=== PATIENT | male | born 1970 | race Caucasian/White ===

== ENCOUNTER 2016-12-31 05:16 | Inpatient (IN) | payer MEDICAID ==
[~2016-12-31] VITALS: Ht 170.2 cm; Wt 121.1 kg
[2016-12-31] MEDS ORDERED: NITROGLYCERIN OINT 2%, 1GM TP ONE ×2 (05:28→05:38)
[2016-12-31] MEDS ORDERED: ASPIRIN 81 MG TABLET CHEW PO ONE (05:30)
[2016-12-31] MEDS ORDERED: METOPROLOL 1 MG/ML, 5ML IVPush PRN (05:30)
[2016-12-31] MEDS ORDERED: MORPHINE SULFATE 4 MG/ML, 1ML IVPush PRN (05:30)
[2016-12-31] MEDS ORDERED: SODIUM CHLORIDE FLUSH 10ML SYR IVF ONE (05:30)
[2016-12-31] MEDS ORDERED: MORPHINE SULFATE 4 MG/ML, 1ML ONE (05:38)
[2016-12-31] MEDS ORDERED: METOPROLOL 1 MG/ML, 5ML ONE (05:38)
[2016-12-31] MEDS ORDERED: ASPIRIN 81 MG TABLET CHEW ONE (05:38)
[2016-12-31] MEDS ORDERED: PLEASE ENTER ALLERGIES MC SCH ×2 (06:00)
[2016-12-31 06:20] LABS: BLOOD UREA NITROGEN 12 mg/dL (7-18)
[2016-12-31 06:25] LABS: ASPARTATE AMINO TRANSFERASE 21 U/L (15-37)
[2016-12-31 06:26] LABS: IS PT STATUS REG ER OR PRE ER? YES
[2016-12-31 06:47] LABS: HEMATOCRIT 49.7 % (39.2-51.8); HEMOGLOBIN 17.1 g/dL (13.7-18.0); WHITE BLOOD COUNT 6.9 x10^3/uL (3.4-10)
[2016-12-31] MEDS ORDERED: OMNIPAQUE 350 MG/ML, 100ML BOTTLE ONE (07:03)
[2016-12-31] MEDS ORDERED: Enoxaparin 1 mg/kg protocol SQ SCH (08:00)
[2016-12-31] MEDS ORDERED: ONDANSETRON 2MG/ML, 2ML IVPush PRN (08:30)
[2016-12-31] MEDS ORDERED: DOCUSATE 100 MG CAPSULE PO PRN (09:00)
[2016-12-31] MEDS ORDERED: LABETALOL 5MG/ML, 20ML IVPush PRN (09:00)
[2016-12-31] MEDS ORDERED: POLYETHYLENE GLYCOL 17 GM PACKET PO PRN (09:00)
[2016-12-31] MEDS ORDERED: BISACODYL 10 MG SUPP PR PRN (09:00)
[2016-12-31 10:34] VITALS: BP 128/80
[2016-12-31] MEDS: ENOXAPARIN 120MG/0.8ML SQ SCH ×2 (11:28→23:15)
[2016-12-31] MEDS: morphine SULFATE 10 MG/ML, 1ML IVPush PRN ×2 (11:29→23:15)
[2016-12-31] MEDS: Enoxaparin 1 mg/kg protocol SQ SCH ×2 (11:31→21:00)
[2016-12-31] MEDS: WARFARIN HIGH DOSE PROTOCOL XX SCH (12:00)
[2016-12-31] MEDS: SODIUM CHLORIDE FLUSH 10ML SYR IVF SCH ×2 (13:15→23:15)
[2016-12-31] MEDS: ONDANSETRON 2MG/ML, 2ML IVPush PRN ×2 (13:15→23:15)
[2016-12-31] MEDS: ACETAMINOPHEN 325 MG TABLET PO PRN (13:24)
[2016-12-31 13:32] LABS: DAU SCREEN DISCLAIMER
[2016-12-31 13:41] LABS: IS PT STATUS REG ER OR PRE ER? NO
[2016-12-31 14:27] VITALS: BP 134/84
[2016-12-31] MEDS: LISINOPRIL 5 MG TABLET PO SCH (15:31)
[2016-12-31] MEDS: CARVEDILOL 3.125 MG TABLET PO SCH (17:24)
[2016-12-31] MEDS ORDERED: WARFARIN 10 MG TABLET PO-COUM ONE (18:00)
[2016-12-31 19:15] LABS: IS PT STATUS REG ER OR PRE ER? NO
[2016-12-31 21:26] VITALS: BP 137/83
[2017-01-01] VITALS (7 sets, daily range): BP systolic 93–141; BP diastolic 50–87
[2017-01-01] MEDS: ACETAMINOPHEN 325 MG TABLET PO PRN (03:56)
[2017-01-01 05:23] LABS: BLOOD UREA NITROGEN 12 mg/dL (7-18)
[2017-01-01 06:30] LABS: HEMATOCRIT 45.3 % (39.2-51.8); HEMOGLOBIN 15.1 g/dL (13.7-18.0); WHITE BLOOD COUNT 6.5 x10^3/uL (3.4-10)
[2017-01-01 06:31] LABS: ANISOCYTOSIS 1+; GIANT PLATELETS 1+; LARGE PLATELETS 1+
[2017-01-01] MEDS: CARVEDILOL 3.125 MG TABLET PO SCH ×2 (08:35→18:00)
[2017-01-01] MEDS: SODIUM CHLORIDE FLUSH 10ML SYR IVF SCH ×2 (08:35→21:35)
[2017-01-01] MEDS: LISINOPRIL 5 MG TABLET PO SCH (08:40)
[2017-01-01] MEDS: WARFARIN HIGH DOSE PROTOCOL XX SCH (12:00)
[2017-01-01] MEDS: ENOXAPARIN 120MG/0.8ML SQ SCH ×2 (12:17→22:33)
[2017-01-01] MEDS: HYDROcodone/APAP 5/325 TABLET PO PRN (12:21)
[2017-01-01] MEDS: ONDANSETRON 2MG/ML, 2ML IVPush PRN (14:27)
[2017-01-01] MEDS ORDERED: WARFARIN 10 MG TABLET PO-COUM SCH (18:00)
[2017-01-01] MEDS: morphine SULFATE 10 MG/ML, 1ML IVPush PRN (22:32)
[2017-01-02 03:13] VITALS: BP 115/70
[2017-01-02 04:47] LABS: HEMATOCRIT 44.8 % (39.2-51.8); WHITE BLOOD COUNT 5.8 x10^3/uL (3.4-10)
[2017-01-02 04:57] LABS: BLOOD UREA NITROGEN 12 mg/dL (7-18)
[2017-01-02 05:59] VITALS: BP 112/72
[2017-01-02] MEDS: CARVEDILOL 3.125 MG TABLET PO SCH ×2 (06:01→17:13)
[2017-01-02 09:01] VITALS: BP 136/81
[2017-01-02] MEDS: SODIUM CHLORIDE 0.9% 1,000 ML IV ONE (10:08)
[2017-01-02] MEDS: ENOXAPARIN 120MG/0.8ML SQ SCH ×2 (11:39→23:13)
[2017-01-02] MEDS: SODIUM CHLORIDE FLUSH 10ML SYR IVF SCH ×2 (11:39→20:51)
[2017-01-02 12:38] VITALS: BP 129/84
[2017-01-02] MEDS ORDERED: WARFARIN 10 MG TABLET PO-COUM SCH (18:00)
[2017-01-02] MEDS ORDERED: LABETALOL 5MG/ML, 20ML IVPush PRN (19:00)
[2017-01-02] MEDS ORDERED: BISACODYL 10 MG SUPP PR PRN (19:00)
[2017-01-02] MEDS ORDERED: POLYETHYLENE GLYCOL 17 GM PACKET PO PRN (19:00)
[2017-01-02] MEDS ORDERED: DOCUSATE 100 MG CAPSULE PO PRN (19:00)
[2017-01-02 19:50] VITALS: BP 154/81
[2017-01-02] MEDS: HYDROcodone/APAP 5/325 TABLET PO PRN (20:50)
[2017-01-02] MEDS ORDERED: ALBUTEROL SULFATE 2.5 MG/3 ML ONE (21:03)
[2017-01-02] MEDS ORDERED: ALBUTEROL SULFATE 2.5 MG/3 ML NPPB PRN (23:30)
[2017-01-03 01:28] VITALS: BP 143/76
[2017-01-03 05:09] LABS: HEMATOCRIT 44.6 % (39.2-51.8); HEMOGLOBIN 15.1 g/dL (13.7-18.0); WHITE BLOOD COUNT 5.1 x10^3/uL (3.4-10)
[2017-01-03 05:21] LABS: BLOOD UREA NITROGEN 11 mg/dL (7-18)
[2017-01-03 06:09] VITALS: BP 150/91
[2017-01-03] MEDS: CARVEDILOL 3.125 MG TABLET PO SCH ×2 (06:10→18:01)
[2017-01-03 08:28] VITALS: BP 143/90
[2017-01-03 09:16] VITALS: BP 145/98
[2017-01-03] MEDS: SODIUM CHLORIDE FLUSH 10ML SYR IVF SCH ×2 (09:25→21:33)
[2017-01-03] MEDS: morphine SULFATE 10 MG/ML, 1ML IVPush PRN (09:34)
[2017-01-03] MEDS: ONDANSETRON 2MG/ML, 2ML IVPush PRN (09:35)
[2017-01-03] MEDS ORDERED: HEPARIN 25,000 UNITS/500ML PMX 500 ML IV PRN (10:00)
[2017-01-03] MEDS ORDERED: POTASSIUM CHLORIDE 20 MEQ TAB.ER.PRT PO ONE (10:30)
[2017-01-03] MEDS ORDERED: HEPARIN 25,000 UNITS/500ML PMX 500 ML ONE (11:59)
[2017-01-03] MEDS ORDERED: HEPARIN 5,000 UNITS/ML, 1ML IV ONE (12:30)
[2017-01-03] MEDS: HEPARIN 25,000 UNITS/500ML PMX 500 ML IV PRN (12:41)
[2017-01-03 13:43] VITALS: BP 151/96
[2017-01-03] MEDS: HEPARIN 5,000 UNITS/ML, 1ML IV PRN (19:10)
[2017-01-03 19:45] VITALS: BP 146/99
[2017-01-04] MEDS: HYDROcodone/APAP 5/325 TABLET PO PRN (01:07)
[2017-01-04 01:09] VITALS: BP 151/90
[2017-01-04] MEDS: HEPARIN 5,000 UNITS/ML, 1ML IV PRN ×2 (01:18→08:11)
[2017-01-04 05:56] LABS: HEMATOCRIT 47.2 % (39.2-51.8); WHITE BLOOD COUNT 5.1 x10^3/uL (3.4-10)
[2017-01-04] MEDS: HEPARIN 25,000 UNITS/500ML PMX 500 ML IV PRN (06:09)
[2017-01-04] MEDS: CARVEDILOL 3.125 MG TABLET PO SCH (06:10)
[2017-01-04 06:18] LABS: BLOOD UREA NITROGEN 12 mg/dL (7-18)
[2017-01-04 08:00] VITALS: BP 150/104
[2017-01-04] MEDS: SODIUM CHLORIDE FLUSH 10ML SYR IVF SCH ×2 (08:11→21:19)
[2017-01-04] MEDS ORDERED: SODIUM CHLORIDE 0.9% 500 ML IV ONE ×2 (12:30)
[2017-01-04 13:56] VITALS: BP 143/107
[2017-01-04] MEDS ORDERED: LIDOCAINE 2%, 20ML ONE (16:00)
[2017-01-04] MEDS ORDERED: MIDAZOLAM 1 MG/ML, 5ML ONE (16:00)
[2017-01-04] MEDS ORDERED: FENTANYL PF 100 MCG/2ML ONE (16:00)
[2017-01-04] MEDS ORDERED: WARFARIN HIGH DOSE PROTOCOL XX PRN (18:00)
[2017-01-04] MEDS: CARVEDILOL 6.25 MG TABLET PO SCH (18:04)
[2017-01-04] MEDS ORDERED: WARFARIN 7.5 MG TABLET PO-COUM ONE (18:30)
[2017-01-04] MEDS ORDERED: SODIUM CHLORIDE 0.9% 1,000 ML IV SCH (18:30)
[2017-01-04 18:45] VITALS: BP 149/107
[2017-01-04] MEDS: morphine SULFATE 10 MG/ML, 1ML IVPush PRN ×2 (19:13→21:18)
[2017-01-04] MEDS: ONDANSETRON 2MG/ML, 2ML IVPush PRN (21:18)
[2017-01-05] MEDS: HYDROcodone/APAP 5/325 TABLET PO PRN ×2 (00:59→08:06)
[2017-01-05 01:30] VITALS: BP 157/100
[2017-01-05 04:50] LABS: BLOOD UREA NITROGEN 14 mg/dL (7-18)
[2017-01-05 05:14] LABS: HEMATOCRIT 46.1 % (39.2-51.8); HEMOGLOBIN 15.8 g/dL (13.7-18.0); WHITE BLOOD COUNT 6.2 x10^3/uL (3.4-10)
[2017-01-05] MEDS: CARVEDILOL 6.25 MG TABLET PO SCH ×2 (06:41→18:04)
[2017-01-05] MEDS ORDERED: NITROGLYCERIN 0.4 MG BOTTLE (25 TABS) SL ONE (07:26)
[2017-01-05 07:40] VITALS: BP 131/94
[2017-01-05] MEDS ORDERED: HEPARIN 5,000 UNITS/ML, 1ML IV PRN (08:00)
[2017-01-05] MEDS ORDERED: HEPARIN 5,000 UNITS/ML, 1ML IV ONE (08:00)
[2017-01-05] MEDS: SODIUM CHLORIDE FLUSH 10ML SYR IVF SCH ×2 (08:06→21:14)
[2017-01-05] MEDS: LISINOPRIL 10 MG TABLET PO SCH (08:06)
[2017-01-05] MEDS: HEPARIN 25,000 UNITS/500ML PMX 500 ML IV PRN ×2 (08:09→22:06)
[2017-01-05 15:26] VITALS: BP 135/84
[2017-01-05] MEDS ORDERED: WARFARIN 10 MG TABLET PO-COUM ONE (18:00)
[2017-01-05 18:40] VITALS: BP 133/82
[2017-01-05] MEDS: ONDANSETRON 2MG/ML, 2ML IVPush PRN (21:10)
[2017-01-05] MEDS: morphine SULFATE 10 MG/ML, 1ML IVPush PRN (21:11)
[2017-01-06 01:52] VITALS: BP 133/87
[2017-01-06 03:44] LABS: HEMATOCRIT 45.4 % (39.2-51.8); HEMOGLOBIN 15.3 g/dL (13.7-18.0); WHITE BLOOD COUNT 5.8 x10^3/uL (3.4-10)
[2017-01-06 03:53] LABS: BLOOD UREA NITROGEN 16 mg/dL (7-18)
[2017-01-06] MEDS: CARVEDILOL 6.25 MG TABLET PO SCH ×2 (06:07→16:51)
[2017-01-06] MEDS: SODIUM CHLORIDE FLUSH 10ML SYR IVF SCH (08:18)
[2017-01-06] MEDS: LISINOPRIL 10 MG TABLET PO SCH (08:18)
[2017-01-06 09:19] VITALS: BP 119/69
[2017-01-06] MEDS: HEPARIN 25,000 UNITS/500ML PMX 500 ML IV PRN (11:16)
[2017-01-06] MEDS ORDERED: SODIUM CHLORIDE 0.9%, 500ML IVBOLUS ONE (14:30)
[2017-01-06 14:46] VITALS: BP 131/76
[2017-01-06] MEDS ORDERED: WARFARIN 7.5 MG TABLET PO-COUM SCH (18:00)
[2017-01-06 20:28] VITALS: BP 128/78
[2017-01-07] MEDS: HEPARIN 25,000 UNITS/500ML PMX 500 ML IV PRN (00:09)
[2017-01-07 02:20] VITALS: BP 130/85
[2017-01-07 05:12] LABS: ANTI-Xa-UNFRACTIONATED HEP 0.3 IU/mL (0.30-0.70)
[2017-01-07 05:13] LABS: BLOOD UREA NITROGEN 14 mg/dL (7-18)
[2017-01-07] MEDS: CARVEDILOL 6.25 MG TABLET PO SCH (06:00)
[2017-01-07] MEDS: SODIUM CHLORIDE FLUSH 10ML SYR IVF SCH ×2 (06:00→07:58)
[2017-01-07 07:45] VITALS: BP 143/91
[2017-01-07] MEDS: LISINOPRIL 10 MG TABLET PO SCH (07:58)
[2017-01-07] MEDS ORDERED: CARV6.2512 PO (11:22)
[2017-01-07] MEDS ORDERED: LISI-167 PO ×2 (11:22→14:51)
[2017-01-07] MEDS ORDERED: WARF5TAB PO (11:22)
[2017-01-07 13:08] VITALS: BP 162/110
[2017-01-07 13:13] VITALS: BP 180/118
[2017-01-07] MEDS ORDERED: LISINOPRIL 10 MG TABLET PO ONE (13:30)
[2017-01-07 14:40] VITALS: BP 126/76
== END 2017-01-07 16:55 | disposition home or self-care (01) | DRG 286 ==
LOC: ED 07:11 → EDIP 07:58 → 5SO 10:30 → DCLOUNGE 01-07 16:40
PROVIDERS: ADMIT Hospitalist; ATTEND Hospitalist
PROC: 4A023N8 Measurement of Cardiac Sampling and Pressure, Bilateral, Percutaneous Approach (ICD-10-PCS; principal; 2017-01-04)
PROC: B2111ZZ Fluoroscopy of Multiple Coronary Arteries using Low Osmolar Contrast (ICD-10-PCS; 2017-01-04)
PROC: B2151ZZ Fluoroscopy of Left Heart using Low Osmolar Contrast (ICD-10-PCS; 2017-01-04)
DX: I82.411 Acute embolism and thrombosis of right femoral vein (principal); I26.99 Other pulmonary embolism without acute cor pulmonale; N17.0 Acute kidney failure with tubular necrosis; C78.7 Secondary malignant neoplasm of liver and intrahepatic bile duct; D68.69 Other thrombophilia; I11.0 Hypertensive heart disease with heart failure; I50.30 Unspecified diastolic (congestive) heart failure; I27.2 Other secondary pulmonary hypertension; J98.11 Atelectasis; I82.431 Acute embolism and thrombosis of right popliteal vein; I07.1 Rheumatic tricuspid insufficiency; E66.9 Obesity, unspecified; F17.200 Nicotine dependence, unspecified, uncomplicated; F41.9 Anxiety disorder, unspecified; I25.10 Atherosclerotic heart disease of native coronary artery without angina pectoris; I86.1 Scrotal varices; J44.9 Chronic obstructive pulmonary disease, unspecified; N43.41 Spermatocele of epididymis, single; N44.2 Benign cyst of testis; Z59.0 Homelessness; I25.2 Old myocardial infarction; Z79.82 Long term (current) use of aspirin; Z79.899 Other long term (current) drug therapy; Z83.3 Family history of diabetes mellitus; Z86.711 Personal history of pulmonary embolism; Z91.14 Patient's other noncompliance with medication regimen; Z91.19 Patient's noncompliance with other medical treatment and regimen; R73.9 Hyperglycemia, unspecified
CPT/HCPCS: 36415; 71010; 71275; 76870; 78582; 80048; 80053; 80061; 80307; 83605; 84443; 84484; 85025; 85379; 85520; 85610; 93005; 93306; 93460; 93970; 93975; 96374; 96375; 99156; 99157; C1894; J1644; J1650; J2250; J2405; J3010; J3490; Q9967; A9540; A9558; C9898; G0479; J2270; J7030; J7040

== ENCOUNTER 2017-02-08 11:00 | Emergency (ER) | payer MEDICAID ==
[~2017-02-08] VITALS: Ht 182.9 cm; Wt 124.0 kg
[~2017-02-08 11:00] MED LIST: CARV6.2512 PO; LISI-167 PO; WARF5TAB PO
[2017-02-08] MEDS ORDERED: ALBUTEROL/IPRATROPIUM 2.5MG/0.5MG, 3 ML NPPB ONE (11:30)
[2017-02-08] MEDS ORDERED: PLEASE ENTER HEIGHT AND WEIGHT MC SCH (11:30)
[2017-02-08] MEDS ORDERED: SODIUM CHLORIDE FLUSH 10ML SYR IVF ONE (11:30)
[2017-02-08] MEDS ORDERED: ALBUTEROL/IPRATROPIUM 2.5MG/0.5MG, 3 ML ONE (11:33)
[2017-02-08 12:03] LABS: HEMATOCRIT 45.5 % (39.2-51.8); HEMOGLOBIN 15.9 g/dL (13.7-18.0)
[2017-02-08 12:12] LABS: BLOOD UREA NITROGEN 15 mg/dL (7-18)
[2017-02-08 12:19] LABS: ASPARTATE AMINO TRANSFERASE 23 U/L (15-37)
[2017-02-08 12:20] LABS: IS PT STATUS REG ER OR PRE ER? YES
[2017-02-08] MEDS ORDERED: ONDANSETRON 2MG/ML, 2ML IVPush ONE (13:00)
[2017-02-08] MEDS ORDERED: MORPHINE SULFATE 4 MG/ML, 1ML IVPush ONE (13:00)
[2017-02-08] MEDS ORDERED: WARFARIN 5 MG TABLET PO-COUM ONE (13:00)
[2017-02-08 14:04] VITALS: BP 136/99
== END 2017-02-08 14:24 | disposition home or self-care (01) ==
LOC: ED 12:10
DX: R07.89 Other chest pain (principal); Z90.49 Acquired absence of other specified parts of digestive tract; I10 Essential (primary) hypertension; Z86.718 Personal history of other venous thrombosis and embolism; Z79.01 Long term (current) use of anticoagulants
CPT/HCPCS: 36415; 70450; 71010; 80053; 83880; 84484; 85025; 85610; 85730; 93005; 94640; 99285; J7620

== ENCOUNTER 2017-03-30 05:36 | Emergency (ER) | payer MEDICAID ==
[~2017-03-30] VITALS: Ht 182.9 cm; Wt 127.3 kg
[2017-03-30] MEDS ORDERED: ASPIRIN 81 MG TABLET CHEW ONE (06:51)
[2017-03-30] MEDS ORDERED: ASPIRIN 81 MG TABLET CHEW PO ONE (07:00)
[2017-03-30 07:12] LABS: HEMOGLOBIN 16.1 g/dL (13.7-18.0); WHITE BLOOD COUNT 7.3 x10^3/uL (3.4-10)
[2017-03-30 07:24] LABS: BLOOD UREA NITROGEN 12 mg/dL (7-18)
[2017-03-30 07:30] LABS: ASPARTATE AMINO TRANSFERASE 20 U/L (15-37)
[2017-03-30 07:32] LABS: IS PT STATUS REG ER OR PRE ER? YES
[2017-03-30] MEDS ORDERED: OMNIPAQUE 350 MG/ML, 150 ML BOTTLE ONE (09:08)
[2017-03-30 10:41] VITALS: BP 127/78
== END 2017-03-30 13:14 | disposition home or self-care (01) ==
LOC: ED 06:08
DX: R07.9 Chest pain, unspecified (principal); F17.210 Nicotine dependence, cigarettes, uncomplicated; I25.10 Atherosclerotic heart disease of native coronary artery without angina pectoris; Z86.711 Personal history of pulmonary embolism; Z86.718 Personal history of other venous thrombosis and embolism
CPT/HCPCS: 36415; 71010; 71275; 80053; 84484; 85025; 85379; 85610; 85730; 93005; 99285; Q9967

== ENCOUNTER 2018-07-28 12:16 | Inpatient (IN) | payer MEDICAID ==
[~2018-07-28] VITALS: Ht 182.9 cm; Wt 123.9 kg
[~2018-07-28 12:16] MED LIST changes: +AMLO-150 PO; +APIX2.5T PO; +APIX5TAB PO; +ATOR40TA78 PO; +METO200T47 PO; +METO25TA35 PO; +METO50TA6 PO; +NITR0.4T28 SL
--- NOTE | 2018-07-28 12:39 | NUR ---
47 YR OLD MALE ARRIVED VIA EMS WITH C/O "WOKE UP WITH LEFT SIDE CP AND DIFFICULTY BREATHING" PT REPORTS BEING IN [place] APPROX A WEEK, HAS BEEN OFF MOST OF HIS MEDICATIONS. "I LEFT THEM IN [place]" PT HAS BEEN TAKING 325 ASPIRIN AND COREG (LAST TIME 2 DAYS AGO) PT REPORTS INCREASING SOB OVER THIS WEEK, TO THE POINT OF "GASPING FOR AIR" WITH EXERTION AND WITHOUT EXERTION. PT REPORTS SMOKING METH YESTERDAY. PT PLACED ON MONITORS, SR PER MONTOR, AUTO BP, PULSE OX MONITOR.
--- NOTE | 2018-07-28 12:48 | NUR ---
PT UPDATED ON POC. UNDERSTANDING VERBALIZED. NO NEEDS EXPRESSED AT THIS TIME.
[2018-07-28 12:54] LABS: BASOPHILS # (AUTO) 0.03 x10^3/uL (0-0.1); BASOPHILS % (AUTO) 1 % (0-1); EOSINOPHILS # (AUTO) 0.26 x10^3/uL (0-0.4); EOSINOPHILS % (AUTO) 5 % (1-7); LYMPHOCYTES # (AUTO) 1.33 x10^3/uL (1-3.4); LYMPHOCYTES % (AUTO) 24 % (22-44); MD NO; MEAN CORPUSCULAR HGB CONC 34.4 g/dL (33.2-36.2); MEAN CORPUSCULAR VOLUME 84.3 fL (81-97); MONOCYTES # (AUTO) 0.54 x10^3/uL (0.2-0.8); MONOCYTES % (AUTO) 10 % (2-9); NEUTROPHILS # (AUTO) 3.38 x10^3/uL (1.8-6.8); NEUTROPHILS % (AUTO) 61 % (42-75); PLATELET COUNT 157 x10^3/uL (130-400); RED BLOOD COUNT 5.36 x10^6/uL (4.38-5.82)
[2018-07-28 13:04] LABS: ALBUMIN 4.2 g/dL (3.4-5.0); ANION GAP 7 mmol/L (5-15); CALCIUM 8.7 mg/dL (8.5-10.1); CHLORIDE 110 mmol/L (98-107); CREATININE 1.68 mg/dL (0.7-1.3)
[2018-07-28 13:05] LABS: INTERNATIONAL NORMALIZED RATIO 1.15 (0.93-1.1)
[2018-07-28 13:10] LABS: TROPONIN I 0.193 ng/mL (0.000-0.045)
--- NOTE | 2018-07-28 13:14 | NUR ---
PT TO CT VIA [facility]
[2018-07-28] MEDS ORDERED: ASPI-496 PO (13:15)
[2018-07-28] MEDS ORDERED: OMNIPAQUE 350 MG/ML, 150 ML BOTTLE ONE (13:27)
--- NOTE | 2018-07-28 13:29 | NUR ---
PT RETURN TO ROOM "I THOUGHT I WAS GOING TO GET SICK" STATES FEELING HAS PASSED, SR PER MONITOR. CONT TO MONITOR. WAITING FOR TEST RESULTS.
[2018-07-28] MEDS ORDERED: APIXABAN 5 MG TABLET PO ONE (14:00)
--- NOTE | 2018-07-28 14:51 | NUR ---
PARVEZ REQUESTED FROM PHARMACY.
[2018-07-28] MEDS ORDERED: ONDANSETRON 2MG/ML, 2ML ONE (14:55)
[2018-07-28] MEDS ORDERED: ONDANSETRON 2MG/ML, 2ML IVPush ONE (15:00)
--- NOTE | 2018-07-28 15:00 | NUR ---
PT WITH C/O "NAUSEA AND FEELING A LITTLE DIZZY" PT MEDICATED ORDERED. SR PER MONITOR. PT UPDATED ON POC, ER MD HAS CALL IN TO [facility]. ER MD AWARE OF PT BP. NO OTHER ORDERS. NO NEEDS EXPRESSED BY PT AT THIS TIME.
--- NOTE | 2018-07-28 15:08 | NUR ---
PT DOZING INTERMITTENTLY, AROUSES TO NAME. PT WITH RA SATS DECREASED TO 86%, PLACED ON 2L NC WITH SAT INC TO 91%.
--- NOTE | 2018-07-28 15:31 | NUR ---
ECHO IN PROCESS.
--- NOTE | 2018-07-28 16:39 | NUR ---
PT DOZING INTERMITTENTLY, AROUSES EASILY, SR PER MONITOR. PT STATES "FEELS BETTER WITH OXYGEN VIA NC IN PLACE. HOSPITALIST AT BEDSIDE TO EVAL PT.
[2018-07-28] MEDS ORDERED: ACETAMINOPHEN 325 MG TABLET PO PRN (17:30)
--- NOTE | 2018-07-28 17:41 | NUR ---
REPORT CALLED TO DOMINIQUE HERNANDEZ POC DISCUSSED.
[2018-07-28 18:36] VITALS: BP 154/90
[2018-07-28] MEDS: METOPROLOL TARTRATE 25 MG TABLET PO SCH (18:46)
[2018-07-28 19:33] VITALS: BP 159/92
[2018-07-28] MEDS: LISINOPRIL 10 MG TABLET PO SCH (20:49)
[2018-07-28] MEDS: APIXABAN 5 MG TABLET PO SCH (20:49)
[2018-07-28] MEDS ORDERED: ATORVASTATIN 40 MG TABLET PO SCH (21:00)
[2018-07-29 00:23] VITALS: BP 140/81
[2018-07-29] MEDS: METOPROLOL TARTRATE 25 MG TABLET PO SCH (05:20)
[2018-07-29 05:46] LABS: TROPONIN I 0.177 ng/mL (0.000-0.045)
[2018-07-29 06:40] VITALS: BP 143/88
[2018-07-29 07:49] LABS: AMPHETAMINE SCREEN, URINE Positive (Negative); BARBITURATE SCREEN, URINE Negative (Negative); BENZODIAZEPINE SCREEN, URINE Negative (Negative); CANNABINOID SCREEN, URINE Negative (Negative); COCAINE SCREEN, URINE Negative (Negative); METHADONE SCREEN, URINE Negative (Negative); OPIATE SCREEN, URINE Negative (Negative)
[2018-07-29] MEDS ORDERED: AMLODIPINE 5 MG TABLET PO SCH (09:00)
[2018-07-29] MEDS ORDERED: ASPIRIN 325 MG TABLET EC PO SCH (09:00)
[2018-07-29] MEDS: APIXABAN 5 MG TABLET PO SCH (10:04)
[2018-07-29] MEDS: LISINOPRIL 10 MG TABLET PO SCH (10:05)
[2018-07-29 12:58] VITALS: BP 166/86
[2018-07-29 14:15] VITALS: BP 128/74
[2018-07-29] MEDS ORDERED: APIX5TAB PO ×2 (15:46)
== END 2018-07-29 17:03 | disposition home or self-care (01) | DRG 546 ==
LOC: ED 13:39 → EDIP 15:14 → 5SO 17:57 → DCLOUNGE 07-29 16:48
PROVIDERS: ADMIT Hospitalist; ATTEND Hospitalist
DX: M32.11 Endocarditis in systemic lupus erythematosus (principal); I82.401 Acute embolism and thrombosis of unspecified deep veins of right lower extremity; D68.59 Other primary thrombophilia; I82.403 Acute embolism and thrombosis of unspecified deep veins of lower extremity, bilateral; Z88.8 Allergy status to other drugs, medicaments and biological substances; F15.10 Other stimulant abuse, uncomplicated; F17.200 Nicotine dependence, unspecified, uncomplicated; I07.1 Rheumatic tricuspid insufficiency; I12.9 Hypertensive chronic kidney disease with stage 1 through stage 4 chronic kidney disease, or unspecified chronic kidney disease; I25.10 Atherosclerotic heart disease of native coronary artery without angina pectoris; J44.9 Chronic obstructive pulmonary disease, unspecified; N18.3 Chronic kidney disease, stage 3 (moderate); Z63.8 Other specified problems related to primary support group; Z79.01 Long term (current) use of anticoagulants; Z80.0 Family history of malignant neoplasm of digestive organs; Z83.3 Family history of diabetes mellitus; Z86.711 Personal history of pulmonary embolism; Z91.19 Patient's noncompliance with other medical treatment and regimen; Z90.49 Acquired absence of other specified parts of digestive tract
CPT/HCPCS: 36415; 71275; 80048; 80307; 82040; 83880; 84484; 85025; 85610; 85730; 93005; 93306; 96374; G0378; J2405; Q9967

== ENCOUNTER 2018-08-23 13:24 | Emergency (ER) | payer MEDICAID ==
[~2018-08-23] VITALS: Ht 182.9 cm; Wt 125.1 kg
[~2018-08-23 13:24] MED LIST changes: +ASPI-496 PO
--- NOTE | 2018-08-23 14:18 | NUR ---
pt to ed room 18 at this time
[2018-08-23 14:49] LABS: BASOPHILS # (AUTO) 0.04 x10^3/uL (0-0.1); BASOPHILS % (AUTO) 1 % (0-1); EOSINOPHILS # (AUTO) 0.25 x10^3/uL (0-0.4); EOSINOPHILS % (AUTO) 4 % (1-7); LYMPHOCYTES # (AUTO) 1.78 x10^3/uL (1-3.4); LYMPHOCYTES % (AUTO) 30 % (22-44); MD NO; MEAN CORPUSCULAR HEMOGLOBIN 28.2 pg (27.5-34.5); MEAN CORPUSCULAR HGB CONC 33.7 g/dL (33.2-36.2); MEAN CORPUSCULAR VOLUME 83.7 fL (81-97); MEAN PLATELET VOLUME 8.8 fL (7.4-10.4); MONOCYTES # (AUTO) 0.54 x10^3/uL (0.2-0.8); MONOCYTES % (AUTO) 9 % (2-9); NEUTROPHILS # (AUTO) 3.42 x10^3/uL (1.8-6.8); NEUTROPHILS % (AUTO) 57 % (42-75); PLATELET COUNT 128 x10^3/uL (130-400); RED BLOOD COUNT 5.41 x10^6/uL (4.38-5.82); RED CELL DISTRIBUTION WIDTH 14.9 % (9.4-14.8)
[2018-08-23 14:53] LABS: INTERNATIONAL NORMALIZED RATIO 1.06 (0.93-1.1); PROTHROMBIN TIME 11.1 Seconds (9.6-11.5)
[2018-08-23] MEDS ORDERED: CARV12.543 PO (14:53)
[2018-08-23 14:57] LABS: ANION GAP 6 mmol/L (5-15); CALCIUM 8.4 mg/dL (8.5-10.1); CHLORIDE 113 mmol/L (98-107)
[2018-08-23 14:58] LABS: CREATININE 1.68 mg/dL (0.7-1.3)
[2018-08-23] MEDS ORDERED: SODIUM CHLORIDE FLUSH 10ML SYR IVF ONE (15:00)
--- NOTE | 2018-08-23 15:54 | NUR ---
UNABLE TO ESTABLISH IV ACCESS, TO REQUEST US IV ACCESS
[2018-08-23 16:15] VITALS: BP 189/91
--- NOTE | 2018-08-23 16:21 | NUR ---
pt to ct
[2018-08-23] MEDS ORDERED: OMNIPAQUE 350 MG/ML, 150 ML BOTTLE ONE (16:35)
== END 2018-08-23 17:31 | disposition home or self-care (01) ==
LOC: ED 17:25
DX: I82.541 Chronic embolism and thrombosis of right tibial vein (principal); J18.9 Pneumonia, unspecified organism; I25.10 Atherosclerotic heart disease of native coronary artery without angina pectoris; I10 Essential (primary) hypertension; Z90.49 Acquired absence of other specified parts of digestive tract; F17.200 Nicotine dependence, unspecified, uncomplicated
CPT/HCPCS: 36415; 71046; 71275; 80048; 82040; 85025; 85610; 93005; 99284; Q9967

== ENCOUNTER 2018-08-27 12:17 | Inpatient (IN) | payer MEDICAID ==
[~2018-08-27] VITALS: Ht 182.9 cm; Wt 120.0 kg
[~2018-08-27 12:17] MED LIST changes: +CARV12.543 PO
--- NOTE | 2018-08-27 12:28 | NUR ---
ORIENTED TO ROOM FOR SAFETY. CONNECTED TO MONITOR. AT BS.
[2018-08-27] MEDS ORDERED: ONDANSETRON ODT 4 MG PO ONE (12:30)
[2018-08-27] MEDS ORDERED: MECLIZINE CHEWABLE 25 MG TAB PO ONE (12:30)
[2018-08-27] MEDS ORDERED: MECLIZINE CHEWABLE 25 MG TAB ONE (12:41)
[2018-08-27] MEDS ORDERED: ONDANSETRON ODT 4 MG ONE (12:42)
[2018-08-27 12:51] LABS: BASOPHILS # (AUTO) 0.04 x10^3/uL (0-0.1); BASOPHILS % (AUTO) 1 % (0-1); EOSINOPHILS # (AUTO) 0.23 x10^3/uL (0-0.4); EOSINOPHILS % (AUTO) 4 % (1-7); LYMPHOCYTES # (AUTO) 1.34 x10^3/uL (1-3.4); LYMPHOCYTES % (AUTO) 21 % (22-44); MD NO; MEAN CORPUSCULAR HGB CONC 34.4 g/dL (33.2-36.2); MEAN CORPUSCULAR VOLUME 84.2 fL (81-97); MEAN PLATELET VOLUME 8.7 fL (7.4-10.4); MONOCYTES % (AUTO) 8 % (2-9); NEUTROPHILS # (AUTO) 4.23 x10^3/uL (1.8-6.8); NEUTROPHILS % (AUTO) 67 % (42-75); PLATELET COUNT 149 x10^3/uL (130-400); RED BLOOD COUNT 5.67 x10^6/uL (4.38-5.82); RED CELL DISTRIBUTION WIDTH 14.7 % (9.4-14.8)
[2018-08-27 13:00] LABS: ALANINE AMINOTRANSFERASE 41 U/L (12-78); ANION GAP 8 mmol/L (5-15); CALCIUM 8.7 mg/dL (8.5-10.1); CHLORIDE 111 mmol/L (98-107); CREATININE 1.62 mg/dL (0.7-1.3)
--- NOTE | 2018-08-27 13:03 | NUR ---
BS REPORT TO
[2018-08-27 13:04] LABS: ALKALINE PHOSPHATASE 63 U/L (45-117); TOTAL PROTEIN 7.9 g/dL (6.4-8.2)
--- NOTE | 2018-08-27 13:08 | NUR ---
RECEIVED REPORT FROM LUCIA HERNANDEZ
--- NOTE | 2018-08-27 13:11 | NUR ---
CRITICAL LAB VALUE TROP 0.170- MD AWARE.
[2018-08-27] MEDS ORDERED: SODIUM CHLORIDE 0.9% 1,000ML IVBOLUS ONE (13:30)
[2018-08-27] MEDS ORDERED: ASPIRIN 81 MG TABLET CHEW PO ONE (13:30)
[2018-08-27] MEDS ORDERED: ASPIRIN 81 MG TABLET CHEW ONE (13:33)
--- NOTE | 2018-08-27 14:12 | NUR ---
PATIENT BACK FROM CTA OF CHEST AND IV RIGHT UPPER FOREARM INFILTRATED. IV DISCONTINUED AND WARM COMPRESS PLACED ON PATIENT.
--- NOTE | 2018-08-27 14:29 | NUR ---
NEW IV STARTED LEFT WRIST
[2018-08-27] MEDS ORDERED: PIPERACILLIN/TAZO/PMX 3.375GM 50 ML IVPB ONE (14:30)
--- NOTE | 2018-08-27 15:08 | NUR ---
WARM COMPRESS PLACED ON RIGHT FOREARM IV INFILTRATION. AWARE OF IV INFILTRATION.
--- NOTE | 2018-08-27 15:09 | NUR ---
BLOOD CULTURES DRAWN X 2 AND ANTIBIOTICS HUNG PER MD ORDER
--- NOTE | 2018-08-27 15:26 | NUR ---
REPORT GIVEN TO SAYRA HERNANDEZ
[2018-08-27] MEDS ORDERED: PIPERACILLIN/TAZO/PMX 3.375GM 50 ML ONE (15:31)
--- NOTE | 2018-08-27 15:40 | NUR ---
HOSPITALIST AT BEDSIDE.
[2018-08-27 15:58] VITALS: BP_SYST 149; BP_SYST 151; BP_SYST 152; BP_DIAS 86; BP_DIAS 89; BP_DIAS 90
[2018-08-27] MEDS ORDERED: CEFTRIAXONE PMX 2GM/50ML 50 ML IV SCH (16:00)
[2018-08-27] MEDS ORDERED: ACETAMINOPHEN 325 MG TABLET PO PRN (16:00)
[2018-08-27] MEDS ORDERED: AZITHROMYCIN 500 MG in SODIUM CHLORIDE 0.9% 250 ML IV SCH (16:00)
[2018-08-27] MEDS ORDERED: ONDANSETRON 2MG/ML, 2ML IVPush PRN (16:00)
[2018-08-27] MEDS ORDERED: hydrALAzine 20 MG/ML, 1ML IVPush PRN (16:00)
[2018-08-27] MEDS ORDERED: NITROGLYCERIN 0.4 MG BOTTLE (25 TABS) SL PRN (16:00)
[2018-08-27] MEDS ORDERED: NICOTINE 14MG/24 HR PATCH.TD24 TD SCH (17:30)
[2018-08-27] MEDS: METOPROLOL TARTRATE 25 MG TABLET PO SCH (18:23)
[2018-08-27 20:09] VITALS: BP 147/70
[2018-08-27 20:12] LABS: AMPHETAMINE SCREEN, URINE Positive (Negative); BARBITURATE SCREEN, URINE Negative (Negative); BENZODIAZEPINE SCREEN, URINE Negative (Negative); CANNABINOID SCREEN, URINE Negative (Negative); COCAINE SCREEN, URINE Negative (Negative); METHADONE SCREEN, URINE Negative (Negative); OPIATE SCREEN, URINE Negative (Negative)
[2018-08-27] MEDS ORDERED: ATORVASTATIN 40 MG TABLET PO SCH (21:00)
[2018-08-27] MEDS: LISINOPRIL 10 MG TABLET PO SCH (21:40)
[2018-08-27] MEDS: CARVEDILOL 12.5 MG TABLET PO SCH (21:40)
[2018-08-27] MEDS: APIXABAN 5 MG TABLET PO SCH (21:40)
[2018-08-28 01:41] VITALS: BP 118/65
[2018-08-28 04:59] VITALS: BP 120/76
[2018-08-28] MEDS: METOPROLOL TARTRATE 25 MG TABLET PO SCH (05:02)
[2018-08-28 05:40] LABS: BASOPHILS # (AUTO) 0.03 x10^3/uL (0-0.1); BASOPHILS % (AUTO) 1 % (0-1); EOSINOPHILS # (AUTO) 0.25 x10^3/uL (0-0.4); EOSINOPHILS % (AUTO) 4 % (1-7); LYMPHOCYTES # (AUTO) 1.51 x10^3/uL (1-3.4); LYMPHOCYTES % (AUTO) 23 % (22-44); MD NO; MEAN CORPUSCULAR HEMOGLOBIN 29.4 pg (27.5-34.5); MEAN CORPUSCULAR HGB CONC 34.8 g/dL (33.2-36.2); MEAN CORPUSCULAR VOLUME 84.4 fL (81-97); MONOCYTES # (AUTO) 0.58 x10^3/uL (0.2-0.8); MONOCYTES % (AUTO) 9 % (2-9); NEUTROPHILS # (AUTO) 4.06 x10^3/uL (1.8-6.8); NEUTROPHILS % (AUTO) 63 % (42-75); PLATELET COUNT 156 x10^3/uL (130-400); RED BLOOD COUNT 5.04 x10^6/uL (4.38-5.82); RED CELL DISTRIBUTION WIDTH 14.8 % (9.4-14.8)
[2018-08-28 05:48] LABS: ALBUMIN 3.5 g/dL (3.4-5.0); ANION GAP 6 mmol/L (5-15); CALCIUM 8.5 mg/dL (8.5-10.1); CHLORIDE 108 mmol/L (98-107)
[2018-08-28 05:52] LABS: ALANINE AMINOTRANSFERASE 33 U/L (12-78); ALKALINE PHOSPHATASE 54 U/L (45-117); BILIRUBIN,TOTAL 0.6 mg/dL (0.2-1.0); CREATININE 1.68 mg/dL (0.7-1.3); TOTAL PROTEIN 7.2 g/dL (6.4-8.2)
[2018-08-28 08:08] VITALS: BP 122/80
[2018-08-28] MEDS ORDERED: ASPIRIN 325 MG TABLET EC PO SCH (09:00)
[2018-08-28] MEDS ORDERED: AMLODIPINE 5 MG TABLET PO SCH (09:00)
[2018-08-28] MEDS: LISINOPRIL 10 MG TABLET PO SCH (09:27)
[2018-08-28] MEDS: CARVEDILOL 12.5 MG TABLET PO SCH (09:28)
[2018-08-28] MEDS: APIXABAN 5 MG TABLET PO SCH (09:28)
[2018-08-28] MEDS ORDERED: METO25TA35 PO (13:17)
[2018-08-28] MEDS ORDERED: CEFD300C37 PO (13:17)
[2018-08-28] MEDS ORDERED: ATOR40TA78 PO (13:17)
[2018-08-28] MEDS ORDERED: CARV12.543 PO (13:17)
[2018-08-28] MEDS ORDERED: AMLO-150 PO (13:17)
[2018-08-28] MEDS ORDERED: NICO-486 TD (13:17)
[2018-08-28] MEDS ORDERED: AZIT500T PO (13:17)
[2018-08-28] MEDS ORDERED: APIX5TAB PO (13:17)
[2018-08-28] MEDS ORDERED: LISI-167 PO (13:17)
[2018-08-28 13:50] VITALS: BP 110/65
== END 2018-08-28 15:05 | disposition home or self-care (01) | DRG 194 ==
LOC: ED 13:44 → EDIP 14:50 → 5SO 15:53 → DCLOUNGE 08-28 14:30
PROVIDERS: ADMIT Hospitalist; ATTEND Internal Medicine
DX: J15.9 Unspecified bacterial pneumonia (principal); I13.0 Hypertensive heart and chronic kidney disease with heart failure and stage 1 through stage 4 chronic kidney disease, or unspecified chronic kidney disease; I50.32 Chronic diastolic (congestive) heart failure; Q25.48 Anomalous origin of subclavian artery; Q25.8 Other congenital malformations of other great arteries; E78.5 Hyperlipidemia, unspecified; Z88.8 Allergy status to other drugs, medicaments and biological substances; E86.0 Dehydration; F15.10 Other stimulant abuse, uncomplicated; F17.200 Nicotine dependence, unspecified, uncomplicated; I07.1 Rheumatic tricuspid insufficiency; I25.10 Atherosclerotic heart disease of native coronary artery without angina pectoris; N18.3 Chronic kidney disease, stage 3 (moderate); Z80.0 Family history of malignant neoplasm of digestive organs; Z86.711 Personal history of pulmonary embolism; Z86.718 Personal history of other venous thrombosis and embolism; Z90.49 Acquired absence of other specified parts of digestive tract; Z91.14 Patient's other noncompliance with medication regimen
CPT/HCPCS: 36415; 71045; 71275; 80053; 80307; 83605; 83735; 83880; 84100; 84145; 84484; 85025; 87040; 93005; 96360; 96361; 99285; G0378; J0456; J0696; J2543; Q0162; J7030; J7050